=== PATIENT | male | born 1990 ===

== ENCOUNTER 2020-10-07 12:34 | Emergency (ER) | payer SELFPAY ==
--- NOTE | 2020-10-07 12:42 | Event Note ---
ED Screening Note Date of service: 10/07/20 Time: 12:39 ED Screening Note: 30-year-old male presents to ED with right to the happened earlier prior to arrival to ED. Patient states he was using drugs to the patient able to move thumb no bleeding noted, Nail is embedded thumb left Tetanus up-to-date This initial assessment/diagnostic orders/clinical plan/treatment(s) is/are subject to change based on patients health status, clinical progression and re- assessment by fellow clinical providers in the ED. Further treatment and workup at subsequent clinical providers discretion. Patient/guardian urged not to elope from the ED as their condition may be serious if not clinically assessed and m anaged. Initial orders include: x-ray of the left finger
[2020-10-07 12:47] VITALS: BP 124/73
--- NOTE | 2020-10-07 13:18 | XRay Report ---
CLINICAL DATA: nail in thumb TECHNICAL DATA: Three views were obtained, AP, lateral and oblique. FINDINGS: There is no acute fracture or dislocation. The visualized joint spaces are normal. Foreign body with in the soft tissues overlying the distal phalanx first digit without evidence of a fracture IMPRESSION: No acute radiographic abnormality. Signer Name: Gaurav Gomez MD Signed: 10/07/2020 1:14 PM Workstation Name: [id number]
--- NOTE | 2020-10-07 14:46 | Emergency Department Report ---
ED General Adult HPI - General Chief complaint: Extremity Injury, Upper Stated complaint: NAIL IN FINGER Time Seen by Provider: 10/07/20 14:38 Source: patient Mode of arrival: Ambulatory Limitations: No Limitations - History of Present Illness Initial comments: 30-year-old male patient presents with complaints of a nail foreign body through the right thumb today. Patient is unsure of his last tetanus vaccination. He rates his pain as a 5/10 in severity. Severity scale (0 -10): 7 - Related Data Previous Rx's Medication Instructions Recorded Last Taken Type Ibuprofen [Motrin 800 MG tab] 800 mg PO Q8HR PRN #15 tablet 10/07/20 Unknown Rx cephALEXin [Keflex] 500 mg PO Q8HR 7 Days #21 cap 10/07/20 Unknown Rx Allergies Allergy/AdvReac Type Severity Reaction Status Date / Time No Known Allergies Allergy Unverified 10/07/20 12:43 ED Review of Systems ROS: Stated complaint: NAIL IN FINGER Other details as noted in HPI Constitutional: denies: fever Musculoskeletal: denies: joint swelling, arthralgia Skin: as per HPI Neurological: denies: numbness, paresthesias ED Past Medical Hx - Past Medical History Previous Medical History?: No - Surgical History Past Surgical History?: No - Social History Smoking Status: Never Smoker Substance Use Type: None - Medications Home Medications: Home Medications Medication Instructions Recorded Confirmed Last Taken Type Ibuprofen [Motrin 800 MG tab] 800 mg PO Q8HR PRN #15 tablet 10/07/20 Unknown Rx cephALEXin [Keflex] 500 mg PO Q8HR 7 Days #21 cap 10/07/20 Unknown Rx ED Physical Exam - General Limitations: No Limitations General appearance: alert, in no apparent distress - Head Head exam: Present: atraumatic, normocephalic - Eye Eye exam: Present: normal appearance. Absent: scleral icterus - Respiratory Respiratory exam: Absent: respiratory distress - Cardiovascular Cardiovascular Exam: Present: regular rate - Neurological Exam Neurological exam: Present: alert, oriented X3 - Psychiatric Psychiatric exam: Present: normal affect, normal mood - Skin Skin exam: Present: warm, dry, normal color, other (Approximately 4 cm metal nail foreign body noted through the left thumb; normal perfusion and sensation and range of motion is noted; no swelling or erythema.). Absent: rash ED Course Vital Signs 10/07/20 12:46 Temperature 98.3 F Pulse Rate 72 Respiratory 18 Rate Blood Pressure 124/73 [Left] O2 Sat by Pulse 100 Oximetry - Procedure Description Procedures done: Finger was soaked in Betadine/water mixture x 15 minutes pre and post procedure. Area cleaned using Betadine. Digital block of the left thumb performed using 7 cc of lidocaine 1% without epinephrine. Nail foreign body was removed from the finger without difficulty. Minimal bleeding occurred. Patient tolerated procedure well without any immediate complications. Sutures not required. Sterile dressing applied. ED Medical Decision Making - Radiology Data Radiology results: report reviewed XR finger(s) 2+V LT Accession Number(s): [id number] cc: ANISH BOLIVAR Fluoro Time In Minutes: CLINICAL DATA: nail in thumb TECHNICAL DATA: Three views were obtained, AP, lateral and oblique. FINDINGS: There is no acute fracture or dislocation. The visualized joint spaces are normal. Foreign body within the soft tissues overlying the distal phalanx first digit without eviden ce of a fracture IMPRESSION: No acute radiographic abnormality. - Medical Decision Making 30-year-old male patient presents with complaints of a nail foreign body through the right thumb today. Patient is unsure of his last tetanus vaccination. He rates his pain as a 5/10 in severity. Nail foreign body removed without any immediate complication. Tetanus vaccination updated. Patient tolerated procedure well. Prescription for Keflex given. Discussed wound care and signs and symptoms of infection that should prompt immediate return to the emergency department in detail with patient who verbalizes understanding. He is to follow-up with his primary care provider in 3 days. His vitals are normal, he is well-appearing, and stable for discharge home. Critical care attestation.: If time is entered above; I have spent that time in minutes in the direct care of this critically ill patient, excluding procedure time. ED Disposition Clinical Impression: Foreign body of right thumb Qualifiers: Encounter type: initial encounter Qualified Code(s): S60.351A - Superficial foreign body of right thumb, initial encounter Disposition: TO HOME OR SELFCARE Is pt being admited?: No Condition: Stable Instructions: Skin Foreign Body, Sliver Removal, Care After Prescriptions: cephALEXin [Keflex] 500 mg PO Q8HR 7 Days #21 cap Ibuprofen [Motrin 800 MG tab] 800 mg PO Q8HR PRN #15 tablet PRN Reason: pain Referrals: [facility]– [place] [Outside] - 3-5 Days Print Language: FRENCH
[2020-10-07] MEDS ORDERED: LIDOCAINE (1%) 10 MG/1 ML VIAL 20 ML MDV INFILTRATI ONE (14:52)
[2020-10-07] MEDS ORDERED: DIPHtheria,PERTUSSIS(ACELL),TETANUS VACCINE/PF 0.5 ML VIAL IM ONE (15:01)
== END 2020-10-07 16:18 | disposition home or self-care (01) ==
LOC: ED 12:34
DX: S60.351A Superficial foreign body of right thumb, initial encounter (principal); Z79.899 Other long term (current) drug therapy; W45.8XXA Other foreign body or object entering through skin, initial encounter; Y93.89 Activity, other specified; Y92.89 Other specified places as the place of occurrence of the external cause; Y99.8 Other external cause status
CPT/HCPCS: 90471; 90715; 99283